=== PATIENT | male | born 1985 | race Caucasian/White ===

== ENCOUNTER 2024-07-24 04:52 | Observation (INO) | payer BC, OTHER ==
[2024-07-24] MEDS ORDERED: ONDANSETRON 4 MG/2 ML VIAL IVP PRN (05:16)
[2024-07-24] MEDS ORDERED: NALOXONE 0.4 MG/ML 1 ML VIAL IV PRN (05:16)
--- NOTE | 2024-07-24 05:16 | ED ---
General Adult HPI - General Chief complaint: Psychiatric Symptoms Stated complaint: Mental Health Time Seen by Provider: 07/24/24 04:55 Source: patient, RN/MD, EMS, RN notes reviewed, old records reviewed Mode of arrival: EMS Limitations: no limitations - History of Present Illness Initial comments: Patient is a 39-year-old male who presents emergency department as a transfer from [facility]. Originally presented to the outside hospital being brought in by police for psychiatric evaluation. Was having homicidal ideations. Patient was intoxicated with alcohol. Patient attempted to elope from [facility] and managed to get outside when he fell and suffered an injury to his right knee. X-ray showed that patient suffered a patella tendon rupture. Was transferred here for Ortho and psychiatric evaluation as they did not have orthopedics at their facility. Patient is currently cooperative. He did receive Geodon, Ativan, Benadryl at the other facility earlier in the evening. States pain is relatively controlled. He has no other acute complaints at this time. Does endorse having homicidal ideations but denies suicidal ideations or hallucinations. Does endorse drinking alcohol yesterday as well. - Related Data Allergies Allergy/AdvReac Type Severity Reaction Status Date / Time No Known Allergies Allergy Verified 07/24/24 04:53 Review of Systems ROS Statement: Those systems with pertinent positive or pertinent negative responses have been documented in the HPI. Review of Systems: CONST: Denies fever EYES: Denies blurry vision ENT: Denies nasal congestion C/V: Denies Chest pain RESP: Denies shortness of breath GI: Denies abdominal pain : Denies dysuria SKIN: Denies rash. MSK: Endorses right knee pain NEURO: Denies headache ROS Other: All systems not noted in ROS Statement are negative. Past Medical History Past Medical History: Sleep Apnea/CPAP/BIPAP History of Any Multi-Drug Resistant Organisms: None Reported Past Surgical History: Tonsillectomy Past Psychological History: Anxiety, Depression Smoking Status: Never smoker Past Alcohol Use History: Occasional Past Drug Use History: None Reported General Exam - General Exam Comments Initial Comments: General: Appears in no acute distress. Cooperative. HEAD: Normal with no signs of head trauma. EYES: EOMI ENT: Hearing grossly intact, normal oropharynx. RESPIRATORY: Clear breath sounds bilaterally. No wheezes, rales, or rhonchi. C/V: Regular rate and rhythm. S1 and S2 auscultated, no edema, peripheral pulses 2+ and intact throughout ABD: Abd is soft, nontender, nondistended EXT: Decreased range of motion of the right knee. Cannot hold against gravity. Obvious deformity to the patella as it is high riding. Fits with patella tendon rupture. Neurovascular intact throughout the right lower extremity. SKIN: Abrasion to the right elbow. NEURO: Alert and oriented x 4. No focal deficits Limitations: no limitations Course Vital Signs 07/24/24 04:54 Temperature 98.3 F Pulse Rate 85 Respiratory 18 Rate Blood Pressure 140/88 O2 Sat by Pulse 96 Oximetry Medical Decision Making - Medical Decision Making Was pt. sent in by a medical professional or institution (, PA, WINDOWS SOFTWARE DEVELOPER, urgent care, hospital, or half-way...) When possible be specific @ -Transferred from [facility] for patella tendon rupture. Transferred for eval by both Ortho as well as psychiatry. Did you speak to anyone other than the patient for history (EMS, parent, family, police, friend...)? What history was obtained from this source @ -Discussed with transferring physician who provided most of the patient's history prior to arrival. Did you review nursing and triage notes (agree or disagree)? Why? @ -I reviewed and agree with nursing and triage notes Were old charts reviewed (outside hosp., previous admission, EMS record, old EKG, old radiological studies, urgent care reports/EKG's, half-way records)? Report findings @ -Reviewed transfer paperwork which revealed the x-ray interpretation as well as original presenting complaint for homicidal ideations Differential Diagnosis (chest pain, altered mental status, abdominal pain women, abdominal pain men, vaginal bleeding, weakness, fever, dyspnea, syncope, headache, dizziness, GI bleed, back pain, seizure, CVA, palpatations, mental health, musculoskeletal)? @ -Differential Mental Health Depression, anxiety, bipolar, psychosis, schizophrenia, borderline personality, situational depression, adjustment disorder, behavioral disorder, brain tumor, malingering, substance abuse, encephalopathy, medication reaction, dementia, hypothyroidism, degenerative neurologic disorder, lupus.... This is not meant to be all-inclusive list Differential Musculoskeletal Muscular strain, contusion, ligament sprain, fracture, arthritis, septic arthritis, bursitis, cellulitis, muscle spasm, nerve compression, DVT, arterial occlusion, herpes zoster, electrolyte abnormality, tumor.... This is not meant to be in all inclusive list EKG interpreted by me (3pts min.). @ -None done X-rays interpreted by me (1pt min.). @ -None done CT interpreted by me (1pt min.). @ -None done U/S interpreted by me (1pt. min.). @ -None done What testing was considered but not performed or refused? (CT, X-rays, U/S, labs)? Why? @ -None What meds were considered but not given or refused? Why? @ -None Did you discuss the management of the patient with other professionals (professionals i.e. Dr., PA, WINDOWS SOFTWARE DEVELOPER, lab, RT, psych nurse, social media coordinator, youth specialist, teacher, community chest officer, bottle caser)? Give summary @ -Discussed the case with Dr. Goodman singer prior to the patient's arrival, and he was in agreement the plan for admission to medicine as patient will likely require psychiatric evaluation prior to surgery. Discussed the case with admitting provider, Dr. Murrieta who accepted the admission. Was smoking cessation discussed for >3mins.? @ -No Was critical care preformed (if so, how long)? @ -No Were there social determinants of health that impacted care today? How? (Homelessness, low income, unemployed, alcoholism, drug addiction, transportation, low edu. Level, literacy, decrease access to med. care, fdc, rehab)? @ -No Was there de-escalation of care discussed even if they declined (Discuss DNR or withdrawal of care, Hospice)? DNR status @ -No What co-morbidities impacted this encounter? (DM, HTN, Smoking, COPD, CAD, Cancer, CVA, ARF, Chemo, Hep., AIDS, mental health diagnosis, sleep apnea, morbid obesity)? @ -None Was patient admitted / discharged? Hospital course, mention meds given and route, prescriptions, significant lab abnormalities, going to OR and other pertinent info. @ -Patient presents as a transfer for psychiatric evaluation as well as orthopedic evaluation for right patella tendon rupture. We will continue with knee immobilizer. IV fluids ordered. Patient given IV Toradol for pain. He will be made n.p.o. for now until orthopedics evaluates him later. Vital signs are within acceptable limits. Exam unremarkable other than the obvious injury to the patella tendon. Patient does have an abrasion to the right elbow. Tetanus will be updated. We will order preoperative laboratory studies. I discussed with Dr. Villafana who is in agreement plan for medicine admission and evaluation by psychiatry. I spoke with the admitting provider, Dr. Murrieta who accepted the admission. Consult placed to psychiatry BAT is 0 and patient is currently sober.Laboratory studies unremarkable. Undiagnosed new problem with uncertain prognosis? @ -No Drug Therapy requiring intensive monitoring for toxicity (Heparin, Nitro, Insulin, Cardizem)? @ -No Were any procedures done? @ -No Diagnosis/symptom? @ -Homicidal ideation, right patella tendon rupture Acute, or Chronic, or Acute on Chronic? @ -Acute Uncomplicated (without systemic symptoms) or Complicated (systemic symptoms)? @ -Complicated Side effects of treatment? @ -No Exacerbation, Progression, or Severe Exacerbation? @ -No Poses a threat to life or bodily function? How? (Chest pain, [place], [place], pneumonia, PE, COPD, DKA, ARF, appy, cholecystitis, CVA, Diverticulitis, Homicidal, Suicidal, threat to staff... and all critical care pts) @ -Yes - Lab Data Result diagrams: 07/24/24 05:15 07/24/24 05:15 Lab Results 07/24/24 07/24/24 07/24/24 Range/Units 05:15 05:15 05:15 WBC 11.5 H (3.8-10.6) k/uL RBC 5.16 (4.30-5.90) m/uL Hgb 15.4 (13.0-17.5) gm/dL Hct 46.9 (39.0-53.0) % MCV 90.9 (80.0-100.0) fL MCH 29.8 (25.0-35.0) pg MCHC 32.8 (31.0-37.0) g/dL RDW 12.9 (11.5-15.5) % Plt Count 197 (150-450) k/uL MPV 8.0 Neutrophils % 66 % Lymphocytes % 25 % Monocytes % 4 % Eosinophils % 3 % Basophils % 1 % Neutrophils # 7.6 (1.3-7.7) k/uL Lymphocytes # 2.9 (1.0-4.8) k/uL Monocytes # 0.5 (0-1.0) k/uL Eosinophils # 0.3 (0-0.7) k/uL Basophils # 0.1 (0-0.2) k/uL PT 10.3 (10.0-12.5) sec INR 0.9 (<1.2) APTT 25.5 (22.0-30.0) sec Sodium 139 (137-145) mmol/L Potassium 4.2 (3.5-5.1) mmol/L Chloride 108 H (98-107) mmol/L Carbon Dioxide 22 (22-30) mmol/L Anion Gap 9 mmol/L BUN 18 (9-20) mg/dL Creatinine 0.95 (0.66-1.25) mg/dL Est GFR (CKD-EPI)AfAm >90 (>60 ml/min/1.73 sqM) Est GFR (CKD-EPI)NonAf >90 (>60 ml/min/1.73 sqM) Glucose 114 H (74-99) mg/dL Calcium 9.0 (8.4-10.2) mg/dL Total Bilirubin 0.8 (0.2-1.3) mg/dL AST 65 H (17-59) U/L ALT 66 H (4-49) U/L Alkaline Phosphatase 69 (38-126) U/L Total Protein 7.3 (6.3-8.2) g/dL Albumin 4.7 (3.5-5.0) g/dL Disposition Clinical Impression: Patellar tendon rupture, Homicidal ideation Disposition: ADMITTED IP TO THIS [facility] Condition: Stable Referrals: None,Stated [REFERRING] - 1-2 days Time of Disposition: 05:15
[2024-07-24 05:23] LABS: Basophils # (A) 0.1 k/uL (0-0.2); Basophils % (A) 1 %; Eosinophils # (A) 0.3 k/uL (0-0.7); Eosinophils % (A) 3 %; HCT 46.9 % (39.0-53.0); HGB 15.4 gm/dL (13.0-17.5); Lymphocytes # (A) 2.9 k/uL (1.0-4.8); Lymphocytes % (A) 25 %; MCH 29.8 pg (25.0-35.0); MCHC 32.8 g/dL (31.0-37.0); MCV 90.9 fL (80.0-100.0); Monocytes # (A) 0.5 k/uL (0-1.0); Monocytes % (A) 4 %; Neutrophils # (A) 7.6 k/uL (1.3-7.7); Neutrophils % (A) 66 %; Platelet Count 197 k/uL (150-450); RBC 5.16 m/uL (4.30-5.90); RDW 12.9 % (11.5-15.5); WBC 11.5 k/uL (3.8-10.6)
[2024-07-24] MEDS: DIPH,PERTUS(ACELL)TETVAC-LF 0.5 ML VIAL IM ONE (05:26)
[2024-07-24] MEDS: SODIUM CHLORIDE 0.9% 1,000 ML IV STA ×2 (05:26→05:29)
[2024-07-24] MEDS: KETOROLAC 15 MG/ML 1 ML VIAL IVP STA (05:27)
[2024-07-24 05:32] LABS: INR 0.9 (<1.2); Partial Thromboplastin Time 25.5 sec (22.0-30.0); Prothrombin Time 10.3 sec (10.0-12.5)
[2024-07-24 05:34] LABS: ALT 66 U/L (4-49); AST 65 U/L (17-59); African American GFR (CKD) >90 (>60 ml/min/1.73 sqM); Albumin 4.7 g/dL (3.5-5.0); Alkaline Phosphatase 69 U/L (38-126); Anion Gap 9 mmol/L; Blood Urea Nitrogen 18 mg/dL (9-20); Carbon Dioxide 22 mmol/L (22-30); Chloride 108 mmol/L (98-107); Glucose 114 mg/dL (74-99); Non-African American GFR(CKD) >90 (>60 ml/min/1.73 sqM); Potassium 4.2 mmol/L (3.5-5.1); Sodium 139 mmol/L (137-145); Total Bilirubin 0.8 mg/dL (0.2-1.3); Total Protein 7.3 g/dL (6.3-8.2)
[2024-07-24] MEDS ORDERED: FLUTICASONE NASAL 50MCG/SPRAY 16GM BTL EA NOSTRIL PRN (08:26)
[2024-07-24] MEDS ORDERED: HALOPERIDOL LACTATE 5 MG/ML 1 ML VIAL IM PRN (08:29)
--- NOTE | 2024-07-24 09:07 | XR ---
EXAMINATION TYPE: XR knee complete RT DATE OF EXAM: 07/24/2024 8:55 AM COMPARISON: None CLINICAL INDICATION: Male, 39 years old with history of patella fracture, tendon rupture; [facility] TECHNIQUE: XR knee complete RT 3 views submitted. FINDINGS/IMPRESSION: The patella is located higher than normal position with soft tissue edema in the area of the patellar tendon. Patella correlate for patellar ligament injury. Further evaluation with MRI recommended. [facility], , 07/24/2024 9:05 AM
--- NOTE | 2024-07-24 09:43 | CT ---
EXAMINATION TYPE: CT knee RT wo con DATE OF EXAM: 07/24/2024 9:38 AM COMPARISON: Extremity radiograph same day. CLINICAL INDICATION: Male, 39 years old with history of patella fracture, tendon rupture; [facility], patell a fracture, tendon rupture. pt moved fast and felt something pop and fell TECHNIQUE: Axial images were obtained of the CT knee RT wo con, Additional coronal and sagittal refor matted images and soft tissue and bone window were obtained for review.. Contrast used: mL of , (None if empty) Oral contrast used: (None if empty) CT DLP: 157.6 mGycm, Automated exposure control for dose reduction was used. FINDINGS: The patella is situated above the level of the knee there is heterogenous tissue in the loc ation of the patellar type then. Patella to the tibial tuberosity distances 6.8 cm. Few bony fragment s are seen below the patella possibly avulsion fragments there is a small joint effusion. A fabella i s present. No other evidence for fracture. The muscles and remainder of the soft tissues are grossly unremarkable.e IMPRESSION: Findings suggestive of patellar tendon rupture. Consider further evaluation with MRI. Small joint eff usion present. Orthopedic surgical consultation recommended. [facility], , 07/24/2024 9:41 AM
[2024-07-24] MEDS: PANTOPRAZOLE 40 MG TABLET PO SCH (10:14)
[2024-07-24] MEDS: ESCITALOPRAM 10 MG TAB PO SCH (10:15)
[2024-07-24] MEDS: HEPARIN SODIUM,PORCINE 5,000 UNIT/ML 1 ML VIAL SQ SCH (10:20)
--- NOTE | 2024-07-24 11:58 | P.CNOR ---
History of Present Illness - [facility] Consult date: 07/24/24 Requesting physician: Tiago Cooper Consult reason: other (Fall with trauma, Right patella tendon ruture) History of present illness: History of Presenting Illness Patient is a 39-year-old male who presented to the ER via transfer from [facility]. It is documented that patient had presented outside the hospital by police for psychiatric evaluation and having homicidal ideations. Patient was intoxicated with alcohol at the time. It is documented he attempted to the elope from [facility] and managed to get outside when he fell and suffered injury to his right knee. Patient is admitted to [facility] with consult to Psychiatric for evaluation. Our services have been consulted due to computed tomography scan of the right knee demonstrating a right patella tendon rupture. Patient does have a past medical history of sleep apnea, anxiety, and depression. No orthopedic history. Patient seen and examined in the ER. Patient is very evasive during interview process, he is not forthcoming with answers to questioning. Patient does report that he had a fall. He presents with an immobilizer on RLE. There is abrasions to his right elbow and right knee. Patient denies pain at this time. Review of Systems Pertinent positives and negatives as discussed in HPI, a complete review of systems was performed and all other systems are negative. Physical Examination General: The patient is sleepy and evasive, in no acute distress Skin: Skin is warm and dry, abrasion noted over the right knee and right elbow. Neck: The neck is supple, there is no tenderness and ROM intact. Cardiovascular: There is a regular rate and rhythm. Respiratory: Respirations are non-labored. Gastrointestinal: Soft, non-distended, non-tender abdomen. Back: There is no tenderness to palpation in the midline, paralumbar, parathoracic or buttocks region. There is no obvious deformity. Musculoskeletal: ROM limited secondary to pain of the right knee. Right: shoulder abduction 5/5, elbow flexors 5/5, wrist dorsiflexors 5/5. finger abductor 5/5, retail coordinator 5/5, hip flexor SCOTTY, knee flexor SCOTTY, ankle dorsiflexor 4/5, ankle plantarflexion 4/5 and extensor hallucis 5/5. Left: shoulder abduction 5/5, elbow flexors 5/5, wrist dorsiflexors 5/5. finger abductor 5/5, retail coordinator 5/5, hip flexor 5/5, knee flexor 5/5, ankle dorsiflexor 5/5, ankle plantarflexion 5/5 and extensor hallucis 5/5. Neurological: CN 2-12 intact. There are no obvious motor or sensory deficits. Movement and coordination equal and intact. Sensory exam to light touch intact C5-T1 and intact from L2-S1. Reflexes 2/4 in bilateral upper and lower extremities. Negative Hoffmans, babinski, and clonus signs. Psychiatric: Cooperative, appropriate mood & affect, normal judgment. Assessment and Plan Fall with trauma Right patella rupture Right patella archana Multiple comorbidities At this time we do not recommend any emergent/urgent orthopedic surgical intervention. Patient may follow-up with Dr. Villafana's office in 1 week for surgical planning. Orthopedics is signing off at this time. Please do not hesitate to contact us for any further questions. 2. Appreciate medical management 3. Pain management - continue with anti-inflammatory, Utilize ice therapy 20min every hour as needed. 4. PT/OT - NWB of RLE, Order for crutches will be placed. 5. Appreciate consult. I reviewed and discussed this case with my attending Dr. Villafana, whom has reviewed this chart and films and is in agreement with assessment and plan of care as outlined above. I have personally seen and examined the patient, performed the documentation and the assessment and plan as written. Past Medical History Past Medical History: Sleep Apnea/CPAP/BIPAP History of Any Multi-Drug Resistant Organisms: None Reported Past Surgical History: Tonsillectomy Past Psychological History: Anxiety, Depression Smoking Status: Never smoker Past Alcohol Use History: Occasional Past Drug Use History: None Reported Medications and Allergies Home Medications Medication Instructions Recorded Confirmed Type Cetirizine HCl [Zyrtec] 10 mg PO DAILY PRN 07/24/24 07/24/24 History Escitalopram [Lexapro] 30 mg PO DAILY 07/24/24 07/24/24 History Fluticasone Propionate [Flonase 1 - 2 spray EA NOSTRIL DAILY PRN 07/24/24 07/24/24 History Allergy Relief] Omeprazole Magnesium [PriLOSEC OTC] 20 mg PO DAILY 07/24/24 07/24/24 History Allergies Allergy/AdvReac Type Severity Reaction Status Date / Time No Known Allergies Allergy Verified 07/24/24 08:23 Results - Labs Labs: Abnormal Lab Results - Last 24 Hours (Table) 07/24/24 07/24/24 Range/Units 05:15 05:15 WBC 11.5 H (3.8-10.6) k/uL Chloride 108 H (98-107) mmol/L Glucose 114 H (74-99) mg/dL AST 65 H (17-59) U/L ALT 66 H (4-49) U/L H & H 07/24/24 Range/Units 05:15 Hgb 15.4 (13.0-17.5) gm/dL Hct 46.9 (39.0-53.0) % Coagulation 07/24/24 Range/Units 05:15 INR 0.9 (<1.2) Result Diagrams: 07/24/24 05:15 07/24/24 05:15
--- NOTE | 2024-07-24 13:30 | P.HPIM ---
History of Present Illness H&P Date: 07/24/24 History of Presenting Illness: Patient is a 39-year-old male with a past medical history of anxiety, depression, GERD, and obstructive sleep apnea. He was transferred to our facility from [facility] where patient was undergoing treatment for psychiatric evaluation. Per ED documentation patient was taken to [facility] by police for psychiatric evaluation as he was reportedly having homicidal ideations and intoxicated with alcohol. At [facility], patient attempted to elope from their facility and after going outside he suffered a fall and injury to his right knee. Patient underwent imaging at their facility which reported a patellar tendon rupture. Patient was transferred to our facility for evaluation by orthopedic surgery and psychiatry as [facility] did not have orthopedic physician available to assess. Upon arrival to our facility, patient underwent evaluation in the emergency department. Vital signs upon arrival show blood pressure 140/88, heart rate 85, respiratory rate 18, temp 98.3 F, and SpO2 of 96% on room air. X-ray right knee showing patella located higher is in normal position with soft tissue edema in the area of the patellar tendon concerning for patellar ligament injury. CT right knee showing patellar tendon rupture with small joint effusion present. Labs completed and reviewed. CBC showing mild leukocytosis with WBC count of 11.5. Coagulation profile normal findings. BMP showing hyperchloremia with chloride of 108. Blood glucose 114. Liver profile showing elevated AST of 65 and ALT of 66. Review of systems: Pertinent positives and negatives as discussed in HPI, a complete review of sy stems was performed and all other systems are negative. Physical exam: Vital signs reviewed and stable. General: Nontoxic, no distress and appears stated age. Derm: Skin warm and dry, normal coloration for ethnicity. Head: Atraumatic, normocephalic and symmetric. Eyes: no lid lag, and anicteric sclera Mouth: no lip lesions, mucus membranes moist Cardiovascular: regular rate and rhythm with normal S1S2, no murmur, positive posterior tibial pulses bilaterally, and cap refill < 2 seconds. Lungs: Respirations even, regular, and unlabored on room air. Lungs CTA bilaterally, no rhonchi, no rales, no wheezing, and no accessory muscle usage. Abdominal: soft, nontender to palpation, no guarding, no appreciable organomegaly Ext:. No gross muscle atrophy, no edema, no contractures. Right extremity with knee immobilizer in place. With the exception of restricted movement of right knee due to injury, patient's movement and sensation in lower extremities otherwise intact. Neuro: Speech clear, face symmetrical and CN II-XII grossly intact with no noted focal neuro deficits Psych: Alert and oriented to person, place, time, and situation. Appropriate and pleasant affect. Assessment and Plan of Care: Fall resulting in right patella tendon rupture -Consult placed to orthopedic surgery team for evaluation, appreciate recommendations. -Maintain knee immobilizer at all times pending further recommendations from orthopedic surgeon. -Symptomatic care and pain management with Tylenol 650 mg every 6 hours as needed for mild pain, Toradol 15 mg every 6 hours as needed for moderate pain, and [place] 5-325 mg tablets every 4 hours as needed for moderate to severe pain. -Fall precautions in place. Homicidal ideations Anxiety with depression -Patient currently calm and cooperative. -Order placed for Haldol 5 mg IM every 6 hours as needed for agitation or acute psychosis. -Order placed for EKG to review baseline QT/QTc. -Maintain strict safety precautions with consumer safety inspector at bedside continuously. -Psychiatry consulted, appreciate recommendations. -Resume Lexapro 30 mg daily. -Elopement precautions to be maintained. Alcohol abuse -Order placed for monitoring of CIWA scores and patient to be medicated with Ativan 0.5 mg every 4 hours as needed for CIWA score of 4-5, Ativan 1 mg every 4 hours for CIWA score of 6-7, Ativan 2 mg every 3 hours CIWA score of 8-9, and Ativan 2 mg every 2 hours forr CIWA score of 10 or greater. -Continuous IV hydration. -Thiamine 100 mg daily, and Multivitamin daily, and Folate 1 mg daily -Seizure, fall, and elopement precautions in place. -Continued close monitoring of electrolytes and replace as needed. Data and imaging reviewed: -As stated above in HPI CODE STATUS: Full code DVT prophylaxis: Heparin Anticipated discharge date: Pending clinical course Anticipated discharge place: Pending clinical course Patient was seen independently by Nurse Practitioner. This document was prepared using [employer] dictation software. Please allow for errors in nutrition tech while rare they do occur. Bobby Linda NP rendered care for this patient independently, reviewed the findings and plan as documented in the note above and agree with plan. I did n ot physically speak with or examine the patient on this date. Past Medical History Past Medical History: Sleep Apnea/CPAP/BIPAP History of Any Multi-Drug Resistant Organisms: None Reported Past Surgical History: Tonsillectomy Past Psychological History: Anxiety, Depression Smoking Status: Never smoker Past Alcohol Use History: Occasional Past Drug Use History: None Reported Medications and Allergies Home Medications Medication Instructions Recorded Confirmed Type Cetirizine HCl [Zyrtec] 10 mg PO DAILY PRN 07/24/24 07/24/24 History Escitalopram [Lexapro] 30 mg PO DAILY 07/24/24 07/24/24 History Fluticasone Propionate [Flonase 1 - 2 spray EA NOSTRIL DAILY PRN 07/24/24 07/24/24 History Allergy Relief] Omeprazole Magnesium [PriLOSEC OTC] 20 mg PO DAILY 07/24/24 07/24/24 History Allergies Allergy/AdvReac Type Severity Reaction Status Date / Time No Known Allergies Allergy Verified 07/24/24 08:23 Physical Exam Vitals: Vital Signs Temp Pulse Resp BP Pulse Ox 07/24/24 04:54 98.3 F 85 18 140/88 96 Intake and Output 07/23/24 07/24/24 07/24/24 22:59 06:59 14:59 Other: Weight 113.398 kg Results CBC & Chem 7: 07/24/24 05:15 07/24/24 05:15 Labs: Abnormal Lab Results - Last 24 Hours (Table) 07/24/24 07/24/24 Range/Units 05:15 05:15 WBC 11.5 H (3.8-10.6) k/uL Chloride 108 H (98-107) mmol/L Glucose 114 H (74-99) mg/dL AST 65 H (17-59) U/L ALT 66 H (4-49) U/L
--- NOTE | 2024-07-24 14:51 | P.CN ---
Psychiatric Consult - . Consult date: 07/24/24 Consult:: 07/24/24 14:44 IDENTIFYING DATA: This patient is a 39-year-old male, living with mother REASON FOR REFERRAL: Psychiatry was consulted for homicidal ideations HISTORY OF PRESENT ILLNESS: The patient presented to the hospital as a transfer due to homicidal ideations. Patient states he was angry with his mother and they began to argue in which he then locked over the chair. He states his mother then called the scaffolding helper and he was brought into the hospital after he made statements about wanting to hurt people. He states he was angry at that time and was intoxicated and that he did not mean this. He states he left AMA from the outside hospital however he fell and was transferred here given his knee injury. He reports losing his dad 1 week ago and that he has been coping with drinking. He reports periods of binge drinking, drinking up to 8 shots of hard liquor per day for several days however within goal several weeks without it. He is not interested in any medications at this time to help with sobriety. At this time patient denies any suicidal or homical ideations, intent or plan. Patient denies any auditory, visual hallucinations and denies any paranoia or delusions. Patients admits to using alcohol and smoking 1 ounce of cannabis per month. PAST PSYCHIATRIC HISTORY: Patient has a a history of depression. He is currently prescribed Lexapro 30 mg daily and his outpatient psychiatrist is Dr. Cooper. Reports 2 previous inpatient hospitalizations, most recent being in 2020. He has a therapist Geovanna at [facility] whom he sees regularly with an appointment scheduled for Saturday at 8 AM and sees a psychiatrist every 3 months. Patient denies any history of suicide attempts in the past. PAST MEDICAL HISTORY: Sleep apnea. ALLERGIES: as per EMR. CHEMICAL DEPENDENCY HISTORY: as per HPI. FAMILY PSYCHIATRIC/SUBSTANCE USE HISTORY: Denies SOCIAL HISTORY: Patient is retired from the [employer] back in 2020 and has 1 daughter but she does not live with him. He lives with his mother MENTAL STATUS EXAM: General Appearance: Patient appears to be stated age is alert, pleasant, and cooperative. Patient appears to have fair hygiene and grooming wearing hospital gown with fair eye contact. Behavior: Patient is calmly lying in bed without any agitated behavior. Speech: Patient's speech is fluent and nonpressured. Mood/Affect: Patient reports their mood is "okay", affect is congruent Suicidality/Homicidality: Patient denies having any suicidal or homicidal ideation intent or plan. Perceptions: Patient denies any visual hallucinations and denies any auditory hallucinations Though content/process: There is no evidence of any delusional thought content and thought process is linear and goal-directed. Memory and concentration: AOX3, grossly intact for the purposes of this session. Can spell "WORLD" backwards Judgment and insight: Poor IMPRESSIONS: Depression, unspecified Alcohol use disorder Cannabis use disorder PLAN: -At this time patient DOES NOT meet criteria for inpatient psychiatric admission. -Would recommend the following medication changes/additions: Continue Lexapro 30 mg daily as prescribed by his outpatient psychiatrist -Can discontinue 1:1 sitter at this time as patient is not currently an imminent threat to themselves -Patient reports following up with [facility] regularly, seeing Dr. Cooper for medications every 3 months and therapist Geovanna weekly with an appointment coming up this Saturday at 8 -[employer] spoke with patient about substance abuse and the harmful effects on medical and mental health, patient verbally understood and agreed. -Psychiatry will sign off at this time -Please contact with any questions.
[2024-07-24] MEDS ORDERED: HYDROcodone/APAP 5-325MG 1 EACH TAB PO PRN (15:36)
[2024-07-24] MEDS ORDERED: LORazepam 1 MG TAB PO PRN ×3 (15:38)
[2024-07-24] MEDS ORDERED: LORazepam 2 MG/ML INJ IV PRN (15:38)
[2024-07-24] MEDS ORDERED: LORazepam 0.5 MG TAB PO PRN (15:38)
[2024-07-24] MEDS: KETOROLAC 15 MG/ML 1 ML VIAL IVP PRN (21:41)
[2024-07-25 06:33] VITALS: RESP 16
[2024-07-25] MEDS: FOLIC ACID 1 MG TAB PO SCH (08:37)
[2024-07-25] MEDS: THIAMINE 100 MG TAB PO SCH (08:37)
[2024-07-25] MEDS: MULTIVITAMINS, THERA 1 EACH TAB PO SCH (08:37)
[2024-07-25] MEDS: ACETAMINOPHEN TAB 325 MG TAB PO PRN (08:37)
[2024-07-25 08:41] VITALS: BP 119/78; PULSE 63; TEMP 98.4
--- NOTE | 2024-07-25 09:56 | P.DS ---
Providers Date of admission: 07/24/24 05:16 Expected date of discharge: 07/25/24 Attending physician: Enrrique Murrieta Consults: 07/24/24 05:16 Consult Physician Routine Consulting Provider: Psychiatry - [facility] Psychiatry Consult Reason/Comments: homicidal ideation Do you want consulting provider notified?: Already Contacted Consult Physician Routine Consulting Provider: Billy Villafana Consult Reason/Comments: patella tendon rupture Do you want consulting provider notified?: Yes Primary care physician: Arik Chávez MD Hospital Course: Discharge Diagnosis: Fall resulting in right patella tendon rupture. Evaluated by orthopedic surgery team, recommending outpatient follow-up in their office in 1 week. Patient provided with crutches and crutch training. He was ambulating well with crutches. Patient instructed he is to remain nonweightbearing of right lower extremity at all times and to keep knee immobilizer in place at all times except when bathing. Patient strongly encouraged to use shower chair or bath to avoid accidental fall and further injury to right knee. Depression with Reports of Homicidal ideations. Patient evaluated by psychiatrist stated patient not having homicidal ideations and does not meet criteria for inpatient psychiatric admission. In agreement with continuation of Lexapro 30 mg daily and continued outpatient follow-up with [facility]. Anxiety with depression. Contitnue Lexapro 30 mg daily. Alcohol abuse. Patient strongly encouraged to avoid any and all alcohol use. Hospital Course: Patient is a 39-year-old male with a past medical history of anxiety, depression, GERD, and obstructive sleep apnea. He was transferred to our facility from [facility] where patient was undergoing treatment for psychiatric evaluation. Per ED documentation patient was taken to [facility] by police for psychiatric evaluation as he was reportedly having ho micidal ideations and intoxicated with alcohol. At [facility], patient attempted to elope from their facility and after going outside he suffered a fall and injury to his right knee. Patient underwent imaging at their facility which reported a patellar tendon rupture. Patient was transferred to our facility for evaluation by orthopedic surgery and psychiatry as [facility] did not have orthopedic physician available to assess. Upon arrival to our facility, patient underwent evaluation in the emergency department. Vital signs upon arrival show blood pressure 140/88, heart rate 85, respiratory rate 18, temp 98.3 F, and SpO2 of 96% on room air. X-ray right knee showing patella located higher is in normal position with soft tissue edema in the area of the patellar tendon concerning for patellar ligament injury. CT right knee showing patellar tendon rupture with small joint effusion present. Labs completed and reviewed. CBC showing mild leukocytosis with WBC count of 11.5. Coagulation profile normal findings. BMP showing hyperchloremia with chloride of 108. Blood glucose 114. Liver profile showing elevated AST of 65 and ALT of 66.Patient evaluated by psychiatrist stated patient not having homicidal ideations and does not meet criteria for inpatient psychiatric admission. In agreement with continuation of Lexapro 30 mg daily and continued outpatient follow-up with [facility]. Evaluated by orthopedic surgery team, recommending outpatient follow-up in their office in 1 week. Patient is medically optimized for discharge at this time. He was provided with crutches and crutch training. He was ambulating well with use of crutches. Patient instructed he is to remain nonweightbearing of right lower extremity at all times and to keep knee immobilizer in place at all times except when bathing. Patient strongly encouraged to use shower chair or bath to avoid accidental fall and further injury to right knee. Physical exam: Vital signs reviewed and stable. General: Nontoxic, no distress and appears stated age. Derm: Skin warm and dry, normal coloration for ethnicity. Head: Atraumatic, normocephalic and symmetric. Eyes: no lid lag, and anicteric sclera Mouth: no lip lesions, mucus membranes moist Cardiovascular: regular rate and rhythm with normal S1S2, no murmur, positive posterior tibial pulses bilaterally, and cap refill < 2 seconds. Lungs: Respirations even, regular, and unlabored on room air. Lungs CTA bilaterally, no rhonchi, no rales, no wheezing, and no accessory muscle usage. Abdominal: soft, nontender to palpation, no guarding, no appreciable organomegaly Ext:. No gross muscle atrophy, no edema, no contractures. Right extremity with knee immobilizer in place. With the exception of restricted movement of right knee due to injury, patient's movement and sensation in lower extremities otherwise intact. Neuro: Speech clear, face symmetrical and CN II-XII grossly intact with no noted focal neuro deficits Psych: Alert and oriented to person, place, time, and situation. Appropriate and pleasant affect. A total of 35 minutes of time were spent preparing this complex discharge summary. Pt was discharged on 07/25/2024 and at 9:55 AM. Patient was seen independently by Nurse Practitioner. This document was prepared using [employer] dictation software. Please allow for errors in software engineer while rare they do occur. Bobby Linda NP rendered care for this patient independently, reviewed the findings and plan as documented in the note above. I did not physically speak with or examine the patient on this date. Patient Condition at Discharge: Stable Plan - Discharge Summary Discharge Rx Participant: No New Discharge Prescriptions: New Ibuprofen [Motrin] 800 mg PO Q8H PRN #24 tab PRN Reason: Pain Control HYDROcodone/APAP 5-325MG [[place] 5-325] 1 each PO Q4HR PRN #18 tab PRN Reason: Moderate Pain (Scale 4 To 6) Continue Fluticasone Propionate [Flonase Allergy Relief] 1 - 2 spray EA NOSTRIL DAILY PRN PRN Reason: Congestion Cetirizine HCl [Zyrtec] 10 mg PO DAILY PRN PRN Reason: Allergy Symptoms Escitalopram [Lexapro] 30 mg PO DAILY Omeprazole Magnesium [PriLOSEC OTC] 20 mg PO DAILY Discharge Medication List Cetirizine HCl [Zyrtec] 10 mg PO DAILY PRN 07/24/24 [History] Escitalopram [Lexapro] 30 mg PO DAILY 07/24/24 [History] Fluticasone Propionate [Flonase Allergy Relief] 1 - 2 spray EA NOSTRIL DAILY PRN 07/24/24 [History] Omeprazole Magnesium [PriLOSEC OTC] 20 mg PO DAILY 07/24/24 [History] HYDROcodone/APAP 5-325MG [[place] 5-325] 1 each PO Q4HR PRN #18 tab 07/25/24 [Rx] Ibuprofen [Motrin] 800 mg PO Q8H PRN #24 tab 07/25/24 [Rx] Follow up Appointment(s)/Referral(s): Mark Kulkarni MD [REFERRING] - 3 Days (Please call first thing Saturday morning and schedule first available appointment ) Billy Villafana DO [Doctor of Osteopathic Medicine] - 1 Week (Pls call Saturday morning and schedule an appt) Ambulatory/Diagnostic Orders: Crutches [DME.AMB1] Facility: [facility], Location: Emergency Center Patient Instructions/Handouts: Hydrocodone/Acetaminophen (By mouth), Ibuprofen (By mouth), Abuse of Alcohol (DC), Knee Immobilizer (DC), Tendon Rupture (GEN) Activity/Diet/Wound Care/Special Instructions: Activity: Nonweightbearing of right lower extremity. Keep knee immobilizer on at all times, may remove cautiously for showers. Recommend shower chair. Diet: Resume regular diet Special Instructions: Take all of your medications as directed and remember to keep all of your doctor's appointments and follow-up as needed. Recommend applying ice to right knee 20 minutes on, 20 minutes off and elevation on pillows or footstool to assist with improving swelling. Thank you for allowing us to participate in your care, it was truly a pleasure having you for our patient!!! . Discharge/Stand Alone Forms: AA Meetings Dist 22 & 24 - OPH, Who Do I Call?, Community Resources, Outpatient Counseling, Outpatient Therapy List Discharge Disposition: HOME SELF-CARE
[2024-07-25 10:46] LABS: Basophils # (A) 0.06 X 10*3/uL (0.00-0.10); Basophils % (A) 0.7 %; Eosinophils # (A) 0.22 X 10*3/uL (0.04-0.35); Eosinophils % (A) 2.6 %; HCT 41.8 % (39.6-50.0); HGB 13.9 g/dL (13.0-17.0); Lymphocytes # (A) 2.49 X 10*3/uL (0.90-5.00); Lymphocytes % (A) 29.8 %; MCH 30.3 pg (27.0-32.0); MCHC 33.3 g/dL (32.0-37.0); MCV 91.3 FL (80.0-97.0); Mean Platelet Volume 10.8 FL (9.5-12.2); Monocytes # (A) 0.69 X 10*3/uL (0.20-1.00); Monocytes % (A) 8.3 %; NRBC Per 100 WBC 0 X 10*3/uL (0.00-0.01); Neutrophils # (A) 4.87 X 10*3/uL (1.80-7.70); Neutrophils % (A) 58.4 %; Platelet Count 160 X 10*3/uL (140-440); RBC 4.58 X 10*6/uL (4.40-5.60); RDW 13.1 % (11.5-14.5); WBC 8.35 X 10*3/uL (4.50-10.00)
[2024-07-25 11:13] LABS: ALT 56 U/L (10-49); AST 57 U/L (14-35); Albumin 4.2 g/dL (3.8-4.9); Alkaline Phosphatase 67 U/L (41-126); BUN/Creat Ratio 23.44 Ratio (12.00-20.00); Blood Urea Nitrogen 21.1 mg/dL (9.0-27.0); Calcium 8.8 mg/dL (8.7-10.3); Carbon Dioxide 22.1 mmol/L (21.6-31.8); Chloride 104 mmol/L (96-109); Globulin 2.1 g/dL (1.6-3.3); Glucose 104 mg/dL (70-110); Magnesium 2.1 mg/dL (1.5-2.4); Potassium 4.2 mmol/L (3.5-5.5); Sodium 139 mmol/L (135-145); Total Bilirubin 0.7 mg/dL (0.3-1.2); Total Protein 6.3 g/dL (6.2-8.2)
== END 2024-07-25 10:45 | disposition home or self-care (01) ==
LOC: EC 04:52 → 1SOBS 05:16 → INTOOBSV 05:16 → 5NMEDONC 06:01 → UNDODISIN 07-25 10:45
PROVIDERS: ADMIT Student in an Organized Health Care Education/Training Program; ATTEND Student in an Organized Health Care Education/Training Program
DX: S76.111A Strain of right quadriceps muscle, fascia and tendon, initial encounter (principal); W19.XXXA Unspecified fall, initial encounter; R45.850 Homicidal ideations; F10.10 Alcohol abuse, uncomplicated; F41.9 Anxiety disorder, unspecified; F32.A Depression, unspecified; G47.33 Obstructive sleep apnea (adult) (pediatric); K21.9 Gastro-esophageal reflux disease without esophagitis; Z23 Encounter for immunization; Z79.899 Other long term (current) drug therapy
CPT/HCPCS: 96376; 96372; 90471; 96374; 99285; 36415; 86900; 86901; 80053 ×2; 83735; 85025 ×2; 85610; 85730; 86850; 73562; 73700; 90715; G0378 ×2; L1830; J1644; J1885; 96361

== ENCOUNTER 2024-08-05 10:20 | Observation (INO) | payer OTHER ==
[2024-08-04 12:36] VITALS: BMI 35.9
--- NOTE | 2024-08-05 07:50 | P.HPOR ---
History of Present Illness H&P Date: 08/05/24 Chief Complaint: Right knee pain The patient is a 39-year-old male who presents with right knee pain and weakness after an injury on 07/23/2024. He notes he fell directly on his right knee. He was unable to really bear weight after that. He was brought initially to the ergency room was placed in an immobilizer. He's been using crutches since. He denies previous problems. Review of Systems As per HPI Past Medical History Past Medical History: Asthma, Pneumonia, Sleep Apnea/CPAP/BIPAP History of Any Multi-Drug Resistant Organisms: None Reported Past Surgical History: Tonsillectomy Additional Past Surgical History / Comment(s): wisdom teeth removed Past Anesthesia/Blood Transfusion Reactions: No Reported Reaction Smoking Status: Never smoker Medications and Allergies Home Medications Medication Instructions Recorded Confirmed Type Cetirizine HCl [Zyrtec] 10 mg PO DAILY PRN 07/24/24 08/04/24 History Escitalopram [Lexapro] 20 mg PO DAILY 07/24/24 08/04/24 History Fluticasone Propionate [Flonase 1 - 2 spray EA NOSTRIL DAILY PRN 07/24/24 08/04/24 History Allergy Relief] Acetaminophen [Tylenol] 325 mg PO DIRECTED PRN 08/04/24 08/04/24 History Allergies Allergy/AdvReac Type Severity Reaction Status Date / Time No Known Allergies Allergy Verified 08/04/24 12:28 Physical Examination - Knee right Appearance: effusion Tenderness with palpation: anterior, peripatellar, patella tendon Results Patient is a well-developed well-nourished male proximal and 5 foot 10, 250 pounds of endomorphic habitus. HEENT exam is nonfocal, neck is supple. He has painless passive motion of the right hip. Straight leg raise is negative. He has a healed prepatellar scab on the right knee. He has a moderate effusion. He has a defect about the inferior aspect the patella. He has significant extensor lag with limited range of motion. Collaterals are stable, Willie is negative. Homans is negative. His distal neurovascular exam appears intact in the right lower extremity. - Diagnostic results Knee x-ray: image reviewed (X-rays of the right knee obtained in the office show patella archana.) Assessment and Plan Assessment: Acute right patellar tendon rupture Plan: I talked to the patient at length regarding his condition along with treatment options. At this point I recommend proceeding with surgical intervention. We'll plan to proceed with right patellar tendon repair. Risks and benefits were discussed at length in layman's terms. We will likely keep the patient for 23 hour hold postoperatively.
[2024-08-05] MEDS: DEXAMETHASONE SOD PHOSPHATE 4 MG/ML 1 ML VIAL IVP STA (11:36)
[2024-08-05] MEDS: FAMOTIDINE 20 MG/2 ML VIAL IV STA (11:37)
[2024-08-05] MEDS: ONDANSETRON 4 MG/2 ML VIAL IVP STA (11:39)
[2024-08-05] MEDS: LACTATED RINGERS 1,000 ML BAG IV STA (11:41)
[2024-08-05] MEDS: IV FLUID CONTINUATION 1,000 ML IV ONE ×2 (11:43→14:48)
[2024-08-05] MEDS ORDERED: SUCCINYLCHOLINE CHLORIDE 200 MG/10 ML VIAL IV ONE (12:30)
[2024-08-05] MEDS ORDERED: KETOROLAC 15 MG/ML 1 ML VIAL ONE (12:30)
[2024-08-05] MEDS ORDERED: NEOSTIGMINE 1 MG/ML 10 ML VIAL ONE (12:30)
[2024-08-05] MEDS ORDERED: GLYCOPYRROLATE 0.2 MG/ML 2 ML VIAL ONE (12:30)
[2024-08-05] MEDS ORDERED: PROPOFOL 10 MG/ML 20 ML VIAL IV ONE (12:30)
[2024-08-05] MEDS ORDERED: ROCURONIUM 10 MG/ML (5 ML VIAL) IV ONE (12:30)
[2024-08-05] MEDS ORDERED: LIDOCAINE 1% INJ 10MG/ML (20 ML MDV) ONE (12:30)
[2024-08-05] MEDS ORDERED: HYDROmorphone (PF) 1 MG/ML ONE (12:30)
[2024-08-05] MEDS ORDERED: MIDAZOLAM 2 MG/2 ML VIAL ONE (12:30)
[2024-08-05] MEDS ORDERED: fentaNYL (PF) 50 MCG/ML 2 ML AMP ONE (12:30)
[2024-08-05] MEDS: ceFAZolin 1,000 MG in SODIUM CHLORIDE 0.9% 1,000 ML IRRIGATION ONE (12:59)
[2024-08-05] MEDS ORDERED: hydrOXYzine pamoate 25 MG CAP PO PRN (14:03)
[2024-08-05] MEDS ORDERED: HYDROcodone/APAP 5-325MG 1 EACH TAB PO PRN (14:03)
[2024-08-05] MEDS ORDERED: ONDANSETRON 4 MG/2 ML VIAL IVP PRN (14:03)
[2024-08-05] MEDS ORDERED: SENNOSIDES-DOCUSATE SODIUM 1 EACH TAB PO PRN (14:03)
--- NOTE | 2024-08-05 14:05 | P.OP ---
Date of Procedure: 08/05/24 Preoperative Diagnosis: Right patellar tendon rupture Postoperative Diagnosis: Same Procedure(s) Performed: Right open patellar tendon repair Anesthesia: ELLE Surgeon: Kishan Oneil Project Accountant #1: Luis Arevalo Estimated Blood Loss (ml): 20 Pathology: none sent Condition: stable Disposition: PACU Indications for Procedure: The patient is a 39-year-old male who presents with right knee pain and weakness after a recent fall. Upon evaluation he was noted to have a complete right patellar tendon rupture. A discussion of the risks and benefits of operative intervention was made with patient. He opted to proceed with surgery. Specific risks of surgery to include infection, neurovascular injury, development of blood clots, possible tendon rerupture, and possible need for subsequent procedures was discussed. Informed consent was obtained. Operative Findings: As below Description of Procedure: The patient was brought to the operating room, and after induction of general anesthesia the right lower extremity was prepped and draped in normal fashion. The tourniquet was inflated to 270 mmHg. A longitudinal incision extending just above the superior aspect of the patella to the medial aspect of the tibial tubercle was then made. Skin and subcutaneous tissues were divided sharply. Electrocautery is used for hemostasis. The peritenon was opened. A complete rupture of the patellar tendon off the inferior pole patella was noted. Significant medial and lateral tenacula tears were also noted. The soft tissue on the inferior aspect of the patella was then debrided sharply exposing the stone ny surface. The patellar tendon was then captured utilizing 2 Bennell type sutures utilizing #5 Ethibond. 3 drill holes were then made just off the inferior aspect of the patella exiting anterior/superior. A suture passer was used to pass the #5 Ethibond. These were then tensioned appropriately with the knee put in full extension. Good apposition of the patella tendon was noted to the inferior patella. The medial and lateral retinacular tears were repaired with interrupted 0 Vicryl suture. The wound was irrigated with normal saline. The subcutaneous tissues reapproximated interrupted 2-0 Vicryl sutures. The skin was reapproximated 3-0 subcuticular strata fix suture. Skin tape and adhesive was applied. A sterile dressing was applied in addition to a hinged knee brace in full extension. The tourniquet was deflated with approximately 60 minutes total tourniquet time. The patient was awoken from general anesthesia and transferred recovery room in good condition. Blood loss was estimated 20 cc. No complications were incurred. Sponge and needle counts were correct at the end of the case. PAMELA Coleman assisted during the major components the case to include positioning, exposure, repair, and closure.
[2024-08-05] MEDS: HYDROmorphone 0.5 MG/0.5 ML SYRINGE IVP PRN (14:14)
[2024-08-05] MEDS: HYDROcodone/APAP 7.5-325MG 1 EACH TAB PO PRN (15:40)
--- NOTE | 2024-08-05 18:20 | P.CONS ---
History of Present Illness - Reason for Consult Consult date: 08/05/24 - History of Present Illness 39 year old M with PMH of seasonal allergies, Depression presents to [facility] for elective surgery. Underwent Right open patellar tendon repair with Dr. Oneil. [facility] Physicians consulted for medical management. Patient reports 6/10 pain. Hasnt urinated yet. No complaints. General: non toxic, no distress, appears at stated age Derm: warm, dry Head: atraumatic, normocephalic, symmetric Eyes: EOMI, no lid lag, anicteric sclera Mouth: no lip lesion, mucus membranes moist Cardiovascular: good distal perfusion in all 4 extremities Lungs: breathing comfortably, no accessory muscle use Ext: no gross muscle atrophy, no edema, no contractures Neuro: no focal neuro deficits Psych: Alert, oriented, appropriate affect Based on my assessment of this patient, this patient meets a high complexity level of care. Seasonal allergies: Restart Flonase and Zyrtec. Depression: Restart Lexapro 20 mg PO QD. CODE STATUS: FULL CODE DVT Prophylaxis: ASA GI Prophylaxis: Designated medical POA if patient is not able to make medical decisions for themselves: I have reviewed the following desktop support consultant notes: Operative note. I have reviewed the results of the following tests: I have ordered the following tests: I have discussed the care of this patient with the following independent historian: I have independently interpreted the following test below: I have discussed the management of this patient with the following physician: Past Medical History Past Medical History: Asthma, Pneumonia, Sleep Apnea/CPAP/BIPAP History of Any Multi-Drug Resistant Organisms: None Reported Past Surgical History: Tonsillectomy Additional Past Surgical History / Comment(s): wisdom teeth removed Past Anesthesia/Blood Transfusion Reactions: No Reported Reaction Past Psychological History: Anxiety, Depression, PTSD Smoking Status: Never smoker Past Alcohol Use History: Abuse, Heavy Additional Past Alcohol Use History / Comment(s): 3 days a week- In process of getting help Past Drug Use History: Marijuana Additional Drug Use History / Comment(s): aware to withhold 24 hours prior Medications and Allergies Home Medications Medication Instructions Recorded Confirmed Type Cetirizine HCl [Zyrtec] 10 mg PO DAILY PRN 07/24/24 08/04/24 History Escitalopram [Lexapro] 20 mg PO DAILY 07/24/24 08/04/24 History Fluticasone Propionate [Flonase 1 - 2 spray EA NOSTRIL DAILY PRN 07/24/24 08/04/24 History Allergy Relief] Acetaminophen [Tylenol] 325 mg PO DIRECTED PRN 08/04/24 08/04/24 History Allergies Allergy/AdvReac Type Severity Reaction Status Date / Time No Known Allergies Allergy Verified 08/05/24 10:58 Physical Exam Vitals: Vital Signs Temp Pulse Pulse Resp BP Pulse Ox 08/05/24 15:33 97.8 F 60 16 162/88 99 08/05/24 15:15 65 16 139/77 95 08/05/24 15:00 66 16 164/85 94 L 08/05/24 14:45 62 16 153/80 94 L 08/05/24 14:30 61 16 155/72 100 08/05/24 14:15 65 16 160/74 100 08/05/24 14:04 99.1 F 83 18 149/80 99 08/05/24 11:19 97.8 F 67 20 146/86 97 Intake and Output 08/05/24 08/05/24 08/05/24 06:59 14:59 22:59 Intake Total 1201 0 Output Total 20 Balance 1181 0 Intake: IV 1201 0 Output: Estimated Blood Loss 20 Other: # Voids 1 Weight 113 kg
[2024-08-05 18:59] LABS: Basophils % (A) 0 %; Eosinophils # (A) 0.1 k/uL (0-0.7); Eosinophils % (A) 1 %; HCT 42.8 % (39.0-53.0); HGB 14.3 gm/dL (13.0-17.5); Lymphocytes # (A) 1.1 k/uL (1.0-4.8); Lymphocytes % (A) 10 %; MCH 30.3 pg (25.0-35.0); MCHC 33.4 g/dL (31.0-37.0); MCV 90.6 fL (80.0-100.0); Mean Platelet Volume 8.5; Monocytes # (A) 0.3 k/uL (0-1.0); Monocytes % (A) 2 %; Neutrophils # (A) 9.7 k/uL (1.3-7.7); Neutrophils % (A) 86 %; Platelet Count 214 k/uL (150-450); RBC 4.72 m/uL (4.30-5.90); RDW 13.3 % (11.5-15.5); WBC 11.3 k/uL (3.8-10.6)
[2024-08-05] MEDS: HYDROmorphone 1 MG/ML 1 ML SYRINGE IVP PRN (21:14)
[2024-08-06 07:23] VITALS: RESP 16
[2024-08-06] MEDS: ASPIRIN 325 MG TAB PO SCH (09:36)
--- NOTE | 2024-08-06 11:46 | P.PN ---
Subjective Progress Note Date: 08/06/24 39 year old M with PMH of seasonal allergies, Depression presents to [facility] for elective surgery. Underwent Right open patellar tendon repair with Dr. Oneil. [facility] Physicians consulted for medical management. 08/06 Patient reports moderate pain in R knee. Urinating freely. No other complaints. CBC shows WBC 11.3. General: non toxic, no distress, appears at stated age Derm: warm, dry Head: atraumatic, normocephalic, symmetric Eyes: EOMI, no lid lag, anicteric sclera Mouth: no lip lesion, mucus membranes moist Cardiovascular: good distal perfusion in all 4 extremities Lungs: breathing comfortably, no accessory muscle use Ext: no gross muscle atrophy, no edema, no contractures Neuro: no focal neuro deficits Psych: Alert, oriented, appropriate affect Based on my assessment of this patient, this patient meets a high complexity level of care. Leukocytosis likely reactive with no signs of active infection Seasonal allergies: Restart Flonase and Zyrtec. Depression: Restart Lexapro 20 mg PO QD. Medically stable. Thank you for this consult. CODE STATUS: FULL CODE DVT Prophylaxis: ASA GI Prophylaxis: Designated medical POA if patient is not able to make medical decisions for them selves: I have reviewed the following programmer analyst consultant notes: I have reviewed the results of the following tests: CBC I have ordered the following tests: I have discussed the care of this patient with the following independent historian: I have independently interpreted the following test below: I have discussed the management of this patient with the following physician: Objective - Vital Signs Vital signs: Vital Signs Temp 98.5 F 08/06/24 07:21 Pulse 80 08/06/24 07:21 Resp 16 08/06/24 07:21 BP 142/81 08/06/24 07:21 Pulse Ox 94 L 08/06/24 07:21 FiO2 Intake & Output 08/05/24 08/06/24 08/06/24 18:59 06:59 18:59 Intake Total 1201 720 Output Total 320 Balance 881 720 Weight 113 kg Intake: IV 1201 Oral 720 Output: Urine 300 Estimated Blood Loss 20 Other: Voiding Method Urinal # Voids 1 4 - Labs CBC & Chem 7: 08/05/24 18:49 Labs: Abnormal Lab Results - Last 24 Hours (Table) 08/05/24 Range/Units 18:49 WBC 11.3 H (3.8-10.6) k/uL Neutrophils # 9.7 H (1.3-7.7) k/uL
--- NOTE | 2024-08-06 13:15 | P.DS ---
Providers Date of admission: 08/05/2024 Expected date of discharge: 08/06/24 Attending physician: Kishan Oneil Consults: 08/05/24 14:03 Consult Physician Routine Consulting Provider: Liliana Ortiz Consult Reason/Comments: medical management s/p right knee patellar tendon repair Do you want consulting provider notified?: Yes Primary care physician: Arik Chávez MD Hospital Course: Date of admission: 08/05/2024 Date of discharge: 08/06/2024 Admission diagnosis: Right patella tendon rupture Discharge diagnosis: Same Attending physician: Dr. Oneil Surgical procedures: Right patella tendon repair Brief history: Patient is a 39-year-old male with a history of right patella tendon rupture. At this point patient has failed conservative treatment measures and has opted to proceed with a elective right patella tendon repair. Hospital course: Details of patient's surgery can be found in operative report. Patient tolerated the procedure well and was subsequently transported to orthopedic floor. Patient's orthopeidc and medical care was provided daily. Patient had daily laboratory tests performed for evaluation of overall blood counts. Patient had daily physical therapy to include strengthening range of motion as well as education with walker ambulation. Patient was treated with aspirin for their postoperative DVT prophylaxis during their inpatient stay. Patient was noted to have a relatively uneventful postoperative course. Patient reported satisfactory pain control with oral pain medications by postoperative day 1. Patient showed satisfactory progress with physical therapy. Patient moved steadily through the program and had no difficulty meeting the goals by postoperative day 1. Given patient's otherwise satisfactory course and having met physical therapy goals, plan is to discharge patient home on postoperative day 1. Discharge condition/disposition: Patient will be discharged home in stable condition. Discharge medications: Instructions are given on resumption of patient's normal daily medications per primary care recommendation, in addition patient will be prescribed [place]; Vistaril; senna; aspirin 325 mg daily x 4 weeks. Orthopedic Discharge Instructions: 1. Wound care and infection precautions, keep incision dry and covered while showering, no lotions, creams, moisturizers. No soaking, pools, hot tubs. Do not scrub over incision. 2. Non-weight bearing right lower extremity with use of crutches until follow- up. 3. Ice and elevate when necessary. Do not exceed 20 minutes per hour with ice pack. 4. Utilize IROM knee brace locked in full extension until seen at first follow up appointment. 5. Pain meds and anticoagulants per prescription. 6. Pain medication has potential to cause constipation. Increase oral fluid and fiber intake. Contact primary care provider if you have not had a bowel movement within 48 hours after discharge. 7. No anti-inflammatory medication until discussed at first post operative vis it, this including Motrin, Aleve, Mobic, Diclofenac. 8. Follow up in office at 2 weeks postop with Jimmy Millard PA-C / Luis Arevalo PA-C 9. Follow up with your primary care doctor 7-10 days after discharge. 10. Contact [facility] with any questions, . Assessment: Right patellar tendon rupture Procedures: Right patella tendon repair Patient Condition at Discharge: Good Plan - Discharge Summary Discharge Rx Participant: Yes New Discharge Prescriptions: New Aspirin 325 mg PO DAILY #28 tab HYDROcodone/APAP 7.5-325MG [[place] 7.5-325] 1 tab PO Q6HR PRN #28 tab PRN Reason: Pain hydrOXYzine pamoate [Vistaril] 25 mg PO TID #21 capsule Sennosides/Docusate Sodium [Senna Plus 8.6-50 mg Softgel] 1 each PO DAILY #20 capsule Continue Fluticasone Propionate [Flonase Allergy Relief] 1 - 2 spray EA NOSTRIL DAILY PRN PRN Reason: Congestion Acetaminophen [Tylenol] 325 mg PO DIRECTED PRN PRN Reason: Pain Cetirizine HCl [Zyrtec] 10 mg PO DAILY PRN PRN Reason: Allergy Symptoms Escitalopram [Lexapro] 20 mg PO DAILY Discharge Medication List Cetirizine HCl [Zyrtec] 10 mg PO DAILY PRN 07/24/24 [History] Escitalopram [Lexapro] 20 mg PO DAILY 07/24/24 [History] Fluticasone Propionate [Flonase Allergy Relief] 1 - 2 spray EA NOSTRIL DAILY PRN 07/24/24 [History] Acetaminophen [Tylenol] 325 mg PO DIRECTED PRN 08/04/24 [History] Aspirin 325 mg PO DAILY #28 tab 08/06/24 [Rx] HYDROcodone/APAP 7.5-325MG [[place] 7.5-325] 1 tab PO Q6HR PRN #28 tab 08/06/24 [Rx] Sennosides/Docusate Sodium [Senna Plus 8.6-50 mg Softgel] 1 each PO DAILY #20 capsule 08/06/24 [Rx] hydrOXYzine pamoate [Vistaril] 25 mg PO TID #21 capsule 08/06/24 [Rx] Follow up Appointment(s)/Referral(s): Luis Arevalo, DIANNA [PHYSICIAN LITHOGRAPHY CONTACT WORKER] - 2 Weeks Patient Instructions/Handouts: Tendon Rupture (ED), Tendon Rupture (GEN), Patellar Tendon Repair (DC), Patellar Tendon Repair (GEN) Activity/Diet/Wound Care/Special Instructions: Orthopedic Discharge Instructions: 1. Wound care and infection precautions, keep incision dry and covered while showering, no lotions, creams, moisturizers. No soaking, pools, hot tubs. Do not scrub over incision. 2. Non-weight bearing right lower extremity with use of crutches until follow- up. 3. Ice and elevate when necessary. Do not exceed 20 minutes per hour with ice pack. 4. Utilize IROM knee brace locked in full extension until seen at first follow up appointment. 5. Pain meds and anticoagulants per prescription. 6. Pain medication has potential to cause constipation. Increase oral fluid and fiber intake. Contact primary care provider if you have not had a bowel movement within 48 hours after discharge. 7. No anti-inflammatory medication until discussed at first post operative visit, this including Motrin, Aleve, Mobic, Diclofenac. 8. Follow up in office at 2 weeks postop with Jimmy Millard PA-C / Luis Arevalo PA-C 9. Follow up with your primary care doctor 7-10 days after discharge. 10. Contact [facility] with any questions, . Discharge Disposition: HOME SELF-CARE
--- NOTE | 2024-08-06 13:19 | P.PN ---
Subjective Progress Note Date: 08/06/24 Principal diagnosis: Right patellar tendon rupture Patient was seen at bedside this morning lying in the semirecumbent position with dressing present over right knee and patient and IROM knee brace. Patient says he did work with therapy this morning and was using crutches. Patient says he is looking forward to going home later today. He says pain is controlled with oral medication since surgery. He says he has been urinating without issue. Patient denies any other orthopedic complaints at this time. Objective - Vital Signs Vital signs: Vital Signs Temp 98.5 F 08/06/24 07:21 Pulse 80 08/06/24 11:50 Resp 16 08/06/24 11:50 BP 142/81 08/06/24 07:21 Pulse Ox 94 L 08/06/24 07:21 FiO2 Intake & Output 08/05/24 08/06/24 08/06/24 18:59 06:59 18:59 Intake Total 1201 720 Output Total 320 Balance 881 720 Weight 113 kg Intake: IV 1201 Oral 720 Output: Urine 300 Estimated Blood Loss 20 Other: Voiding Method Urinal Urinal # Voids 1 4 - Exam Right knee: Incision is clean, dry, and intact. The exofin fusion tape is in good condition. There is minimal soft tissue swelling and ecchymosis surrounding the medial and lateral aspects of the incision. Calf is soft, no tenderness with palpation. Plantar flexion, dorsiflexion, EHL, FHL are intact. Sensory exam to light touch throughout the extremity is intact, dorsal pedis pulses 2+. - Labs CBC & Chem 7: 08/05/24 18:49 Labs: Abnormal Lab Results - Last 24 Hours (Table) 08/05/24 Range/Units 18:49 WBC 11.3 H (3.8-10.6) k/uL Neutrophils # 9.7 H (1.3-7.7) k/uL Assessment and Plan Assessment: 1. Right patellar tendon rupture -Postop day 1 status post right patellar tendon repair Plan: 1. Right patella tendon rupture -right patellar tendon repair performed yesterday, 08/05/2024. Patient stable bedside this morning with dressing in place over right knee and patient in hinged I ROM knee brace. Patient did work with therapy this morning and does have crutches for home. Discharge home today. 2. Appreciate medical management 3. Pain management -[place]; Vistaril 4. DVT prophylaxis -aspirin 5. GI prophylaxis -senna 6. PT/OT -nonweightbearing right lower extremity. Maintain dressing clean, dry, intact. Keep right knee locked in full extension in hinged I ROM knee brace. 7. Encourage incentive spirometer use 8. Discharge planning -home today Time with Patient: Less than 30
[2024-08-06 14:05] VITALS: BP 129/78; PULSE 52; TEMP 99.1
== END 2024-08-06 15:20 | disposition home or self-care (01) ==
LOC: OR 10:20 → 4SSUR 10:21 → OR 10:21 → 4SSUR 14:37
PROVIDERS: ADMIT Orthopaedic Surgery; ATTEND Orthopaedic Surgery
DX: S76.111A Strain of right quadriceps muscle, fascia and tendon, initial encounter (principal); J45.909 Unspecified asthma, uncomplicated; G47.33 Obstructive sleep apnea (adult) (pediatric); F10.10 Alcohol abuse, uncomplicated; F12.90 Cannabis use, unspecified, uncomplicated; F32.A Depression, unspecified; F41.9 Anxiety disorder, unspecified; F43.10 Post-traumatic stress disorder, unspecified; D72.829 Elevated white blood cell count, unspecified; W19.XXXA Unspecified fall, initial encounter; Z79.899 Other long term (current) drug therapy; Z88.8 Allergy status to other drugs, medicaments and biological substances; Z98.890 Other specified postprocedural states
CPT/HCPCS: 27380; 97161; 85025; G0378; J2250; J0330; J1100; J2710; J0690 ×3; J2405; J2003; J3010; J3490; J1171 ×3; J1885; J2704; J1596